=== PATIENT | female | born 1980 | race Asian ===

== ENCOUNTER 2019-05-22 14:40 | Emergency (ER) | payer BC ==
[~2019-05-22] VITALS: Ht 152.4 cm; Wt 50.8 kg
[2019-05-22 15:00] VITALS: Ht 152.4 cm; Wt 50.8 kg
[2019-05-22 19:10] VITALS: BP 115/64
== END 2019-05-22 19:10 | disposition home or self-care (01) ==
LOC: ED 14:40
DX: N76.0 Acute vaginitis (principal); N39.0 Urinary tract infection, site not specified
CPT/HCPCS: 87491; 87591; J0696